=== PATIENT | female | born 1945 | race Caucasian/White ===

== ENCOUNTER 2016-07-19 21:06 | Emergency (ER) | payer OTHER ==
[~2016-07-19] VITALS: Ht 152.4 cm; Wt 96.9 kg
[~2016-07-19 21:06] MED LIST: ATIVAN2 MG PO; DITROPAN5 MG PO; ENDOCET 10-3251 EACH PO; LORAZEPAM2 MG PO; MULTIPLE VITAM1 EACH PO; OXYCODONE HCL15 MG PO; PERCOCET 10/1 TABLET PO; PROTONIX40 MG PO; SERTRALINE HCL50 MG PO; VITAMIN B12-FO1 EACH PO; VITAMIN D5000 UNIT PO
[2016-07-19 21:38] LABS: HEMATOCRIT 37.6 % (36.0-46.0); MCH 28.6 PG (29.0-34.0); MCHC 32.4 G/DL (30.0-36.0); MCV 88.3 FL (83-99); MEAN PLAT.VOLUME 8.7 uM^3 (9.5-12.4); PLATELET COUNT 211 K/uL (156-360); RBC DIS.WIDTH-CV 13.2 % (11.8-14.6); RBC DIS.WIDTH-SD 41.7 % (39-53); RED BLOOD COUNT 4.26 M/uL (3.80-5.20); WHITE BLOOD COUNT 8.1 K/uL (4.1-10.2)
[2016-07-19 21:56] LABS: CHLORIDE 109 mEq/L (99-109); SODIUM 141 mEq/L (136-147)
[2016-07-19 21:58] LABS: GLUCOSE 100 mg/dL (70-99)
[2016-07-19 21:59] LABS: ANION GAP 8 MEQ/L (2-14)
[2016-07-19 22:00] LABS: TOTAL BILIRUBIN 0.3 mg/dL (0.0-1.0)
[2016-07-19 22:02] LABS: ALKALINE PHOSPHATASE 87 IU/L (3-129); GFR ESTIMATE (CALCULATED) > 59 mL/min/
[2016-07-19 22:03] LABS: UREA NITROGEN (BUN) 18 mg/dL (9-23)
[2016-07-19 22:05] LABS: LIPASE 13 U/L (1.0-51.0)
[2016-07-20 00:25] LABS: ADD MIUA? YES; BILIRUBIN NEGATIVE; BLOOD NEGATIVE; COLOR YELLOW ((YELLOW)); GLUCOSE (STRIP) NEGATIVE; KETONES NEGATIVE; LEUKOCYTES NEGATIVE; NITRITE POSITIVE; PROTEIN (STRIP) NEGATIVE; SPECIFIC GRAVITY 1.025 (1.000-1.030)
[2016-07-20 00:34] LABS: BACTERIA 3+ /HPF; EPITHELIAL CELLS 2+ /HPF; MUCUS 1+ /LPF; RED BLOOD CELLS 0-5 /HPF (0-5); UCUL ADDED? NO; UNCLASSIFIED CRYSTALS 1+ /HPF; WHITE BLOOD CELLS 0-5 /HPF (0-5)
[2016-07-20] MEDS ORDERED: MACROBID100 MG PO (00:49)
[2016-07-20 01:24] VITALS: BP 169/87
== END 2016-07-20 01:25 | disposition home or self-care (01) ==
LOC: EXP 21:06 → EME 21:06 → EXP 07-20 01:25
DX: N39.0 Urinary tract infection, site not specified (principal); R10.84 Generalized abdominal pain; R19.7 Diarrhea, unspecified; R11.0 Nausea; Z98.84 Bariatric surgery status; G89.29 Other chronic pain; Z79.891 Long term (current) use of opiate analgesic
CPT/HCPCS: 74176; 80053; 81003; 83690; 85027; 99281; 99284

== ENCOUNTER 2016-09-14 10:49 | Emergency (ER) | payer OTHER ==
[~2016-09-14] VITALS: Ht 152.4 cm; Wt 95.7 kg
[~2016-09-14 10:49] MED LIST changes: +MACROBID100 MG PO
[2016-09-14] MEDS ORDERED: PRILOSEC10 MG PO (11:15)
[2016-09-14] MEDS ORDERED: CIPRO500 MG PO (13:52)
[2016-09-14 14:08] VITALS: BP 151/74
== END 2016-09-14 14:17 | disposition home or self-care (01) ==
LOC: EME 10:49
DX: L03.114 Cellulitis of left upper limb (principal); M25.532 Pain in left wrist; R22.31 Localized swelling, mass and lump, right upper limb; M79.601 Pain in right arm; M79.7 Fibromyalgia; Z60.2 Problems related to living alone
CPT/HCPCS: 73110; 93971; 99281; 99284

== ENCOUNTER 2016-12-22 20:09 | Emergency (ER) | payer OTHER ==
[~2016-12-22] VITALS: Ht 152.4 cm; Wt 94.1 kg
[~2016-12-22 20:09] MED LIST changes: +CIPRO500 MG PO; +PRILOSEC10 MG PO
[2016-12-22] MEDS ORDERED: CLEOCIN300 MG PO (20:56)
[2016-12-22] MEDS ORDERED: BACTRIM,SEPT1 TABLET PO (20:56)
[2016-12-22 21:02] VITALS: BP 134/84
== END 2016-12-22 21:02 | disposition home or self-care (01) ==
LOC: EME 20:09
DX: S50.812A Abrasion of left forearm, initial encounter (principal); W54.1XXA Struck by dog, initial encounter; L03.114 Cellulitis of left upper limb; Z88.0 Allergy status to penicillin
CPT/HCPCS: 99281; 99283

== ENCOUNTER 2018-01-22 19:54 | Emergency (ER) | payer OTHER ==
[~2018-01-22] VITALS: Ht 152.4 cm; Wt 94.6 kg
[~2018-01-22 19:54] MED LIST changes: +BACTRIM,SEPT1 TABLET PO; +CLEOCIN300 MG PO
[2018-01-22 20:37] LABS: HEMATOCRIT 34.1 % (36.0-46.0); HEMOGLOBIN 10.9 G/DL (11.9-15.5); MCH 27.7 PG (29.0-34.0); MCV 86.5 FL (83-99); PLATELET COUNT 177 K/uL (156-360); RBC DIS.WIDTH-CV 13.8 % (11.8-14.6); RBC DIS.WIDTH-SD 43.6 % (39-53); RED BLOOD COUNT 3.94 M/uL (3.80-5.20); WHITE BLOOD COUNT 7.6 K/uL (4.1-10.2)
[2018-01-22 20:46] LABS: CHLORIDE 108 mEq/L (99-109); POTASSIUM 4.3 mEq/L (3.7-5.4); SODIUM 141 mEq/L (136-147)
[2018-01-22 20:48] LABS: GLUCOSE 100 mg/dL (70-99)
[2018-01-22 20:52] LABS: CREATININE 0.8 mg/dL (0.6-1.3); GFR ESTIMATE (CALCULATED) > 59 mL/min/
[2018-01-22 20:53] LABS: UREA NITROGEN (BUN) 20 mg/dL (9-23)
[2018-01-22 21:00] LABS: TROP-I INTERPRETATION NEGATIVE; TROPONIN-I < 0.01 ng/mL (0.0-0.30)
[2018-01-22] MEDS ORDERED: FLEXERIL10 MG PO (22:09)
[2018-01-22 22:35] VITALS: BP 124/58
== END 2018-01-22 22:36 | disposition home or self-care (01) ==
LOC: EME 19:54 → RME 19:54
DX: M50.11 Cervical disc disorder with radiculopathy, high cervical region (principal); M47.22 Other spondylosis with radiculopathy, cervical region; I65.29 Occlusion and stenosis of unspecified carotid artery; R91.1 Solitary pulmonary nodule; R07.9 Chest pain, unspecified; M79.602 Pain in left arm; M25.512 Pain in left shoulder; Z90.49 Acquired absence of other specified parts of digestive tract; Z98.84 Bariatric surgery status; Z88.0 Allergy status to penicillin
CPT/HCPCS: 71046; 72040; 80048; 84484; 85027; 93005; 99281; 99284